=== PATIENT | male | born 1990 | race Hispanic/Latino ===

== ENCOUNTER 2016-06-18 12:53 | Emergency (ER) | payer OTHER ==
[~2016-06-18] VITALS: Ht 170.2 cm; Wt 100.0 kg
[2016-06-18 12:56] VITALS: BP 153/92; PULSE 79; RESP 18; O2SAT 98
--- NOTE | 2016-06-18 13:08 | ED.REPORT ---
HPI-Extremity Problem Lower Date of Service Jun 18, 2016 ED Provider: Ed Wade DO Pt is a 25 y/o healthy male presenting to the ED due to left ankle injury which occurred prior to arrival. The pt was showing his child how to skateboard and going down a wet ramp when he slipped and everted his left ankle. He has not been able to bear weight on the ankle since injury. Pt c/o associated pain and swelling over the left ankle. He denies numbness or weakness of the left leg or any other injury. Nursing Notes Stated Complaint: POSS BROKEN LEG Chief Complaint: Extremity Trauma Nursing Notes Reviewed: Yes Allergies: Coded Allergies: No Known Allergies (Unverified , 06/18/16) Scheduled PRN Ibuprofen (Ibuprofen) 800 Mg Tablet 800 MG PO TID PRN PRN For Pain oxyCODONE-Acetaminophen 5-325 mg (oxyCODONE-Acetaminophen 5-325 mg) 1 Each Tablet 1-2 TAB PO Q6H PRN PRN For Pain General Time Seen by MD: 13:07 Chief Complaint Ankle injury left Hx Obtained From: Patient Arrived By: Walk-in Onset Occurred: Just prior to arrival Symptom Duration: Since onset Caused by: Accidental Location: : Ankle left Quality: Painful Severity: Current: Moderate Severity: Maximum: Severe Recent Healthcare: No recent doctor visit Similar Sx Previous: No Past Medical History Past Medical History Denies Past Surgical History Nasal cyst removal Smoking History Unknown if Ever Smoker Ambulatory Status Independent Review of Systems Musculoskeletal: Reports: Extremity pain, Extremity swelling, Denies: Back pain, Neck pain Neurologic: Denies: Headache Complete sys rev & neg: except as marked. Physical Exam Initial Vital Signs Initial VS: Reviewed, Vital signs normal Head / Eyes: Atraumatic, Normocephalic, PERRL ENT: Mucous membranes moist, Conjunctiva normal, No scleral icterus Neck: Supple, Non-tender, Full range of motion Respiratory: No respiratory distress Cardiovascular: Intact distal pulses Abdomen / GI: Soft, Non-tender Skin: Warm, Dry, No cyanosis Neurologic: Alert, Oriented, Nonfocal Psychiatric: Mood/affect normal, Behavior normal, Normal thought content Lower Extremity / Pelvis / MS: Neurologic intact, Vascular intact Knee nontender Ankle / Foot: Neurologic intact, Vascular intact Left ankle: Pain and tenderness over the medial malleolus Swelling of the medial ankle Palpable deformity of the medial malleolus No ecchymosis General/Constitutional: Awake, Alert, No acute distress, Cooperative, Not toxic appearing Interpretation & Diagnostics X-Ray Interpretation Xray Interpretation: IMPRESSION: Trimalleolar fracture, prominent lateral soft tissue swelling. Dictated by: Rusty Bañuelos M.D. on 06/18/2016 at 13:25 Approved by: Rusty Bañuelos M.D. on 06/18/2016 at 13:25 Study Performed: 3 view X-Ray Ordered: Ankle left Interpretation / Wet Read by: Interpret - Radiologist Re-Eval/Medical Decision Re-Evaluation/Progress : Time of Eval: 13:59 Post-Splint Evaluation: Cap refill < 2 seconds, Distal sensation intact, Distal motor func intact, No signs compartment synd Patient Status: Condition improved, Pain improved Re-Evaluation/Progress Note: Pt rechecked. Discussed imaging results. Informed pt of plan for treatment. Pt understands and agrees with plan for treatment. F/U and RTER warnings given. All questions addressed. Consultation : Referral / Consult Name: Abdullahi Matos DO Consulted With: Orthopedic Call Returned at: 13:42 Direct Marketing Specialist: Agrees with eval, Agrees with plan Note: Discussed case and imaging. He recommends splint, ice and elevation, and he will see it in the clinic next week. He believes it will likely require surgery. Counseled Regarding: Diagnosis, Need for follow-up, When/why to return to ED Discharge & Departure Impression: Primary Impression: Left trimalleolar fracture Encounter type: initial encounter Fracture type: closed Qualified Code: S82.852A - Displaced trimalleolar fracture of left lower leg, initial encounter for closed fracture Additional Impression: Fall involving skateboard as cause of accidental injury Disposition: Home Discharge Condition All VS Reviewed: Yes Condition: Stable Patient Instructions: Ankle Fracture (ED), Splint Care (ED), Crutch Instructions (ED) Additional Instructions: You fractured 3 bones of your ankle during your accident today, this is called a trimalleolar fracture. This type of fracture often requires surgery. I discussed your case with the orthopedic physician Dr. Matos today. He recommended we splint your leg today and have you be seen in follow-up next week for further evaluation and to determine possible surgical intervention. Call his office at the number listed below on Sunday. Tell the office that Dr. Matos knows about your case and that he wanted you to be seen within 1 week at the latest. Keep your leg elevated, apply ice, and use the narcotic pain medication every 6 hours as needed for pain. Do not bear weight on the leg. Keep the splint on until you are evaluated by an orthopedist. This pain medication causes constipation and drowsiness. Take 1 scoop of Miralax with each dose of narcotic pain medication. Do not drive while under the influence of narcotic pain medication. Return to the emergency department if you develop numbness/tingling of the foot that does not resolve when you loosen the splint, you experience severe uncontrolled pain, or for other concerning symptoms. Referrals: Abdullahi Matos Attestation Portions of this note were transcribed by Drew Monk. I, Dr. Amin personally performed the history, physical exam and medical decision-making; I reviewed and confirmed the accuracy of the information in the transcribed note. Signed by Alex Mullins, 06/18/168 copies to: Abdullahi Matos Gary R DO Jun 18, 2016 13:08 DREW MONK Jun 18, 2016 13:25 reviewed and confirmed the accuracy of the information in the transcribed note. Signed by Alex Mullins, 06/18/167 copies to: Abdullahi Matos Gary R DO Jun 18, 2016 13:08 DREW MONK Jun 18, 2016 13:25
[2016-06-18] MEDS ORDERED: oxyCODONE-Acetamin 10-325 mg Tablet PO ONE (13:10)
--- NOTE | 2016-06-18 13:27 | DRSVH ---
PROCEDURE: X-RAY LEFT ANKLE, MINIMUM THREE VIEWS ([id number]) INDICATIONS: trauma TECHNIQUE: 3 views of the ankle were acquired. COMPARISON: None. FINDINGS: Bones: No dislocations. Ankle mortise is normally aligned. No suspicious bony lesions. There is a trimalleolar fracture, with the distal fibular fracture component at the metadiaphyseal junction. T he posterior malleolar fracture seen on the lateral view only. The medial malleolar fractures are pr edominantly of evulsion fragments, both laterally and inferiorly, with overlying prominent soft tissu e swelling. Soft tissues: No tibiotalar joint effusion. Achilles tendon appears normal. IMPRESSION: Trimalleolar fracture, prominent lateral soft tissue swelling. Dictated by: Rusty Bañuelos M.D. on 06/18/2016 at 13:25 Approved by: Rusty Bañuelos M.D. on 06/18/2016 at 13:25
[2016-06-18] MEDS ORDERED: OXYC1TAB24 PO (14:09)
[2016-06-18] MEDS ORDERED: IBUP800T28 PO (14:09)
[2016-06-18 14:58] VITALS: BP 132/83; PULSE 79; O2SAT 99
== END 2016-06-18 14:10 | disposition home or self-care (01) ==
LOC: SED 12:53
DX: S82.852A Displaced trimalleolar fracture of left lower leg, initial encounter for closed fracture (principal); V00.131A Fall from skateboard, initial encounter; Y92.009 Unspecified place in unspecified non-institutional (private) residence as the place of occurrence of the external cause; Y93.51 Activity, roller skating (inline) and skateboarding; Y99.8 Other external cause status

== ENCOUNTER 2016-06-26 09:04 | Day surgery (SDC) | payer OTHER ==
[2016-06-26] VITALS (10 sets, daily range): BP systolic 147–184; BP diastolic 72–108; PULSE 63–113; RESP 13–20; O2SAT 97–99
[~2016-06-26] VITALS: Ht 167.6 cm; Wt 91.2 kg
[~2016-06-26 09:04] MED LIST: CeFAZolin 2 Gm/50 mL D5W IV Premix IV ONE; IBUP800T28 PO; Lactated Ringer's 1,000 ML IV ONE; OXYC1TAB24 PO
[2016-06-26] MEDS ORDERED: HYDROmorphone 2 mg/mL Inj ONE (09:05)
[2016-06-26] MEDS ORDERED: Propofol 10 mg/mL 20 mL Inj ONE (09:05)
[2016-06-26] MEDS ORDERED: Lidocaine PF 1% 30 mL Inj ONE (09:05)
[2016-06-26] MEDS ORDERED: Ondansetron 2 mg/mL 2 mL Inj ONE (09:05)
[2016-06-26] MEDS ORDERED: EPHEDrine/NS 5 mg/mL 5 mL Syringe ONE (09:05)
[2016-06-26] MEDS ORDERED: fentaNYL-PF 50 mCg/mL 2 mL Inj ONE (09:05)
[2016-06-26] MEDS ORDERED: HYDR-4003 PO (09:34)
[2016-06-26] MEDS ORDERED: Lactated Ringer's 500 ML IV PRN (10:32)
[2016-06-26] MEDS ORDERED: Lactated Ringer's 1,000 ML IV SCH (10:32)
--- NOTE | 2016-06-26 10:32 | PCM.HPANE ---
Patient Data Date of Service: Jun 26, 2016 Surgeon Admitting Provider: Attending Provider:Abdullahi Matos DO Primary Care Physician:Bossman Other Provider:Mark Escoto Anesthesia Reason for Visit Left Ankle Fracture LEFT ANKLE FRACTURE Ht/WT & BMI Height (Feet): 5 Height (Inches): 6 Weight (Kilograms): 91.2 Body Mass Index 32.00 Allergies Coded Allergies: No Known Allergies (Unverified , 06/18/16) Past Anesthesia History Anesthesia History: Denies:: Anesthesia Reactions, Fam Anesthesia Reaction Diabetes History Hx Diabetes?: No MRSA MRSA: No Medications Hypertension Medication: No Home Meds Incl Beta Shabnam: No Active Scripts oxyCODONE-Acetaminophen 5-325 mg 1 Each Tablet1-2 Tab PO Q6H PRN For Pain #20 TABLET Ref 0 Prov:Ed Wade DO 06/18/16 Ibuprofen 800 Mg [id number] Mg PO TID PRN For Pain #30 TABLET Ref 0 Prov:Ed Wade DO 06/18/16 Reported Medications Hydrocodone-Acetaminophen 5-325 mg 1 Each Tablet1 Tablet PO Q4H PRN For Pain Ref 0 06/26/16 History History of ENT Problems?: Yes HEENT History: Positive for:: Sinus Problem (past hx removal cyst- nasal) Denies:: Cataracts Glaucoma Hearing Problem Hx of Heart Problems?: No Cardiovascular History: Denies:: AICD Congestive Heart Failure Coronary Artery Disease Edema Heart Murmur Hypertension Irregular Heartbeat Pacemaker Peripheral Vascular Rheumatic Fever Hx of Respiratory Problem?: No Respiratory History: Denies:: Asthma (as child- not any longer) COPD Emphysema Oxygen Administration Pneumonia Tuberculosis Use of C-PAP Machine Use of Inhalers / NEBS Hx Neurologic Problems?: No Neurological History: Denies:: Alzheimer's Disease CVA Dementia Dizziness Headaches Multiple Sclerosis Parkinson's Disease Seizures TIA Hx of GI Problems?: No Gastrointestinal History: Denies:: Cirrhosis Gall Bladder Disease Gastroesphageal Reflux Gastrointestinal Bleeding Heartburn Hepatitis Hiatal Hernia Liver Disease Rectal Bleeding Hx of Problems?: No Genitourinary History: Denies:: Kidney Stones Urinary Tract Infection Male Hx: Denies:: Prostate Problems Scrotal Mass Testicular Surgery Skin History: Denies:: History Skin Disorders? Pressure Ulcers Hx Musculoskeletal Problems?: Yes Musculoskeletal History: Positive for:: Musculoskeletal Trauma (left ankle fx current admission problem) Denies:: Back Injury Degenerative Joint Fibromyalgia Joint Replacement Myasthenia Gravis Osteoarthritis Rheumatoid Arthritis Systemic Lupus Hx of Psycho/Social Problems?: No Psycho Social History: Denies:: Anxiety Hx Depression Hx Surgeries?: No (no prior surgery) Hx Any Other Health Problems?: Yes Other History: Denies:: Cancer Thyroid Disease History Blood Transfusions: Positive for:: Accept Blood Products? Denies:: Blood Transfusions Hx Diabetes: No Hx Alcohol Use: YesAlcoholic Drinks Per Day: one drinke every two weeksHx Substance Use: No Smoking Status: Unknown if Ever Smoker Have You Smoked inLast 12 mo: No Stop/Bang S-Snoring: Do You Snore Loudly: No T-Tired: feel tired, fatigued: No O-Obsered: Observed not breath: No P-Blood Pressure: treated: No B- Body Mass Index > 35 kg/m2: No A- Age over 50: No N- Neck Large Circumference: No G- Gender Male: Yes PABLITO Total Score: 1 PABLITO Risk Assessment: Low Risk, <3 Yes Risk Assessment Category Category 1A: Patient has history of documented sleep apnea, and HAS NOT received any narcotic, sedative or anesthesia administration during this stay. Category 1B: Patient has history of documented sleep apnea, and HAS received any narcotic , sedative or anesthesia administration during this stay Category 2: Patient has SUSPECTED Obstructive Sleep Apnea, and HAS received any narcotic , sedative or anesthesia administration during this stay. Category 3: Patient has SUSPECTED Obstructive Sleep Apnea and HAS NOT received narcotic, sedative or anesthesia administration during this stay. Category 4: Outpatient in Procedural Areas with known sleep apnea or who screen positive for High Risk via the STOP/BANG questionnaire. Exam Exam Vital Signs Vital Signs Date Time Temp Pulse Resp B/P Pulse Ox O2 Delivery O2 Flow Rate FiO2 06/26/16 09:43 35.4 63 16 147/72 99 Room Air General Appearance: Alert, Oriented X3, Cooperative HEENT/AIRWAY: MP 2, Neck Movement, Mouth Opening Lungs: Clear to Auscultation, Normal Air Movement Heart: Regular Rate/Rhythm, Normal S1, Normal S2 Meds/Labs/Diagnostics Admission Meds Current Medications Lactated Ringer's (Lr) 1,000 ml @ 120 mls/hr Q8H20M ONCE IV Last administered on 06/26/16t 09:23; Start 06/26/16 at 05:00; Stop 06/26/16 at 13:19 Plan Impression Patient chart reviewed, patient interviewed and anesthestic plan with risks, benefits, and alternatives discussed, and informed consent obtained. NPO Status: 06/25/16 ASA Physical Status: ASA1 Normal Healthy Anesthetic Plan: GA Bene/Risks/Altern/Consents: Yes HP Complete Prior to Induction: Yes Moses Rose MD Jun 26, 2016 10:01
[2016-06-26] MEDS ORDERED: MetoCLOpramide 5 mg/mL 2 mL Inj IVPUSH PRN (10:35)
[2016-06-26] MEDS ORDERED: Phenylephrine 10,000 mCg/mL Inj IVPUSH PRN (10:35)
[2016-06-26] MEDS ORDERED: Ondansetron 2 mg/mL 2 mL Inj IVPUSH PRN ×2 (10:35→12:45)
[2016-06-26] MEDS ORDERED: Atropine 0.4 mg/mL Inj IVPUSH PRN (10:35)
[2016-06-26] MEDS ORDERED: Dexamethasone 4 mg/mL Inj IVPUSH PRN (10:35)
[2016-06-26] MEDS ORDERED: Labetalol 5 mg/mL 4 mL Inj IV PRN (10:35)
[2016-06-26] MEDS ORDERED: hydrALAZINE 20 mg/mL Inj IVPUSH PRN (10:35)
[2016-06-26] MEDS ORDERED: EPHEDrine Sulfate 50 mg/mL Inj IVPUSH PRN (10:35)
[2016-06-26] MEDS ORDERED: Ropivacaine-PF 0.5% 30 mL Inj INJ ONE (11:22)
[2016-06-26] MEDS ORDERED: Lactated Ringer's 1,000 ML IV ONE (12:00)
[2016-06-26] MEDS ORDERED: diphenhydrAMINE 25 mg Capsule PO PRN (12:45)
[2016-06-26] MEDS ORDERED: Magnesium Hydroxide 10 mL Oral Concentration PO PRN (12:45)
[2016-06-26] MEDS ORDERED: Polyethylene Glycol (PEG) 17 Gm Powder PO PRN (12:45)
--- NOTE | 2016-06-26 12:49 | PCM.ANEP1 ---
Post Anesthesia Phase 1 PACU Phase 1 Assessment Date of Service: Jun 26, 2016 Vital Signs PACU HR 114, RR 15, BP 174/91, O2 100% 10L, T 36.3 Vital Signs Date Time Temp Pulse Resp B/P Pulse Ox O2 Delivery O2 Flow Rate FiO2 06/26/16 09:43 35.4 63 16 147/72 99 Room Air Anesthetic Administered: GA Level of Alertness: Sleeping, hard to arouse SLAUGHTER's with Equal Strength: Yes Pain: No Nausea or Vomiting: No Oxygen Delivery: Simple Mask Lungs: Normal Air Movement Moses Rose MD Jun 26, 2016 12:49
[2016-06-26] MEDS: HYDROmorphone 1 mg/mL Inj IVPUSH PRN ×4 (12:50→19:28)
[2016-06-26] MEDS: fentaNYL-PF 50 mCg/mL 2 mL Inj IVPUSH PRN ×2 (12:50→13:08)
--- NOTE | 2016-06-26 13:16 | PCM.ANEP2 ---
Post Anesthesia Evaluation ASA/CMS Post Anesthesia Date of Service: Jun 26, 2016 VS in Patient's Normal Range?: Yes Resp Stable; Airway Patent?: Yes CV Function & Hydration Stable: Yes Mental Status Recovered?: Yes Pain control Satisfactory?: Yes (improving) N/V Control Satisfactory?: Yes Moess Rose MD Jun 26, 2016 13:16
[2016-06-26] MEDS: hydrOXYzine Pamoate 25 mg Capsule PO PRN ×3 (13:26→22:59)
[2016-06-26] MEDS: 0.9% Sodium Chloride 1,000 ML IV SCH (14:09)
--- NOTE | 2016-06-26 15:09 | NUR ---
Admit to [facility]SC Pt arrived on [facility] from PACU at 1355 hrs. Alert and oriented x 3. PIV patent and asymptomatic. VS within normal limits except for BP of 184/108 and HR of 98. Pt had just moved from OR cart to the bed, and he was in pain as well. Administered 0.25 mg IVP Dilaudid for pt's pain. He reported that this helped. Rechecked pt's BP and HR at 1401 hrs: BP 163/99 and HR was 81. Pt resting comfortably with left leg elevated. Spouse at bedside. Called Day Surgery to request pt's belongings be brought to his room. Will continue to monitor pt's pain level and VS.
[2016-06-26] MEDS: Sodium Chloride LOK Flush 10 mL Syringe IV SCH (16:30)
[2016-06-26] MEDS: oxyCODONE-Acetamin 5-325 mg Tablet PO PRN ×3 (17:06→22:56)
[2016-06-26] MEDS: CeFAZolin Inj 2 GM in IV Premix 1 EACH IV SCH (18:23)
--- NOTE | 2016-06-26 22:03 | OP ---
[address] [address] OPERATIVE REPORT PATIENT: SONAL GLASS : 1990 MR#: [id number] ADMIT: 06/26/2016 JOB ID: [id number] DATE OF SURGERY: 06/26/2015 PREOPERATIVE DIAGNOSIS(ES): Left trimalleolar ankle fracture dislocation. POSTOPERATIVE DIAGNOSIS(ES): Left trimalleolar ankle fracture dislocation. PROCEDURE: Left ankle open reduction and internal fixation with syndesmotic fixation. SURGEON: Abdullahi Matos DO. ANESTHESIA: General. INDICATIONS: The patient is a 25-year-old male who fell at a skateboard park injuring his left ankle. It was initially malrotated by 90 degrees and he reduced it himself in the field. Was unable to ambulate after the fall and accident. We discussed treatment options for this, and I recommended open reduction and internal fixation. We discussed the risks, benefits and possible complications of surgery. All questions were answered and he wished to proceed. PROCEDURE IN DETAIL: The patient is brought to the operating room. He was given a preoperative antibiotic and general anesthetic. The left lower extremity was sterilely prepped and draped. A tourniquet was used for hemostasis. An incision was made over the posterolateral border of the fibula. Dissection was carefully carried through the subcutaneous tissue. Electrocautery was used for hemostasis. The superficial peroneal nerve was located within the wound and protected throughout the procedure. The fracture was encountered and soft tissue was removed adjacent to the fracture was dissected with an elevator. The fracture was then debrided of clot and interposed tissue and then reduced with bone reduction forceps. A 2.7 lag screw was then placed across the fracture, which yielded excellent fixation. I then placed a none hole [employer] periarticular distal fibula locking plate along the fibula, secured this both proximally and distally with a nonlocking screw proximally and distally, and then added multiple locking screws distally. Care was taken to ensure that these were left short of the joint space, and multiple nonlocking screws proximally yielding excellent fixation of the fracture. I then performed a Cotton test and he had some medial clear space widening and gapping at the syndesmosis; and therefore, elected to place a single 3.5 syndesmotic screw across four cortices, which had excellent fixation and held the ankle stable. The syndesmotic screw was placed very near the superficial peroneal nerve. The wound was then irrigated and closed with 2-0 Vicryl to close the deep fascia and 3-0 to close the subcu. The skin was closed with 4-0 nylon. Naropin was added as an adjunct local anesthetic. Sterile dressings and plaster splints were applied. Patient tolerated the procedure well. Blood loss was 5 cc. POSTOPERATIVE PROTOCOL: Have the patient remain nonweightbearing on the left lower extremity for a period of six weeks, ice and elevate. Follow up in two weeks for suture removal and placement into a short-leg cast. He is given a prescription for Percocet for pain and will anticipate the patient will stay overnight for pain control, antibiotics, work with physical therapy, and be discharged in the morning. ROSEANNA
[2016-06-26] MEDS: Senna-Docusate 8.6-50 mg Tablet PO SCH (22:47)
--- NOTE | 2016-06-26 23:44 | NUR ---
Pain Patient stated pain 10/10 on pain scale. Pain medication and vistaril administered. Ice packs applied to left ankle area. Advised patient to call before pain get out of control. VSS. Call light within reach.
[2016-06-27 00:06] VITALS: BP 158/81; PULSE 89; RESP 16; O2SAT 94
[2016-06-27] MEDS: 0.9% Sodium Chloride 1,000 ML IV SCH ×2 (00:13→08:44)
[2016-06-27] MEDS: Sodium Chloride LOK Flush 10 mL Syringe IV SCH ×2 (00:14→07:46)
[2016-06-27] MEDS: CeFAZolin Inj 2 GM in IV Premix 1 EACH IV SCH (02:30)
[2016-06-27] MEDS: oxyCODONE-Acetamin 5-325 mg Tablet PO PRN ×3 (03:26→11:28)
[2016-06-27] MEDS: hydrOXYzine Pamoate 25 mg Capsule PO PRN ×3 (03:26→11:27)
[2016-06-27 04:30] VITALS: BP 126/73; PULSE 88; RESP 18; O2SAT 98
[2016-06-27] MEDS: Senna-Docusate 8.6-50 mg Tablet PO SCH (07:46)
--- NOTE | 2016-06-27 11:05 | PCM.PNORTH ---
Subjective Date of Service: Jun 27, 2016 Visit Information: Reason for Visit Left Ankle Fracture Surgery/Surgery Date ORIF L ANKLE 06/26/16 Post-Op Day # Date of Admission: Hospital Day # Subjective Status post day #1 left ankle trimalleolar fracture ORIF with syndesmotic screw. Patient doing well, pain is well-controlled. Patient was able to work with crutches with physical therapy and did really well. Would like to go home. Postop General: No Complaints, No Shortness of Breath, No Chest Pain Objective Exam Objective Patient is alert and oriented 3. Answering questions appropriately. Sitting up in bed and not in any acute distress today. Dressing and splint is clean dry and intact. Patient able to wiggle toes. Calf is soft and nontender, pulses intact, sensation is full. Vital Signs and I/O Vital Sign - Last Date Time Temp Pulse Resp B/P Pulse Ox O2 Delivery O2 Flow Rate FiO2 06/27/16 04:30 36.9 88 18 126/73 98 Room Air Intake and Output 06/26/16 06/26/16 06/27/16 Cumulative From/Thru 15:00 23:00 07:00 06/22/16 10:59 - 06/27/16 05:18 Intake Total 1650 ml 1721 ml 1248 ml 4619 ml Output Total 5 ml 800 ml 450 ml 1255 ml Balance 1645 ml 921 ml 798 ml 3364 ml Intake Oral 1320 ml 200 ml 1520 ml IV Total 1650 ml 401 ml 1048 ml 3099 ml Output Urine Total 800 ml 450 ml 1250 ml Estimated Blood Loss 5 ml 5 ml # Voids 2 2 # Bowel Movements 0 0 0 Assessment & Plan Impression Status post day #1 left ankle trimalleolar fracture ORIF with syndesmotic screw. Patient doing well, ready to go home. Problems: Plan Patient will remain nonweightbearing to the left lower extremity therapy for a period of 6 weeks. Use crutches for ambulation. Keep the splint clean dry and intact. Elevate, ice, and rest the leg. Patient will be given Percocet to take home to use as needed for pain. Patient will follow up in 2 weeks after open clinic for suture removal and placement in a cast. Follow-up once again at 6 weeks at [facility]. Discharge to home today. Drew Padilla PA-C Jun 27, 2016 11:05
--- NOTE | 2016-06-27 11:06 | PCM.DIORTH ---
Ortho Discharge Instruction Date of Service: Jun 27, 2016 Dates of Hospitalization Date of Hospital Admission 06/26/2016 Providers Admitting Physician: Primary Care Physician: Bossman Attending Physician: Abdullahi Matos DO Diet Discharge Diet: No restrictions Activity Discharge Activity-General: Elevate & ice extremity Left Lower Extremity: Non-weight Bearing Additional Instructions Discharge Instructions Patient will remain nonweightbearing to the left lower extremity therapy for a period of 6 weeks. Use crutches for ambulation. Keep the splint clean dry and intact. Elevate, ice, and rest the leg. Patient will be given Percocet to take home to use as needed for pain. Patient will follow up in 2 weeks after open clinic for suture removal and placement in a cast. Follow-up once again at 6 weeks at [facility] Drew Padilla PA-C Jun 27, 2016 11:06
--- NOTE | 2016-06-27 11:09 | PCM.DC.ORT ---
Discharge Summary Date of Service: Jun 27, 2016 Date of Hospital Admission: 06/26/2016 Date of Surgery: Jun 26, 2016 Date of Discharge: Jun 27, 2016 Reason for Hospitalization: Left trimalleolar ankle fracture dislocation Procedures Performed: Left ankle ORIF with syndesmotic screw Hospital Course: Patient presented to [facility] surgical suite for the procedure of left ankle ORIF by Dr. Abdullahi Matos on 06/26/2016. Patient was prepped for surgery and the procedure was performed successfully, patient was discharged to PACU under stable condition, tolerated the procedure well. Once stabilized in PACU and pain well controlled, patient was admitted to the hospital floor for observation, pain control, and progression with physical therapy. The first day the patient was able to resume a regular diet, void on their own, not having any problems with nausea or vomiting. The patient did not have any adverse falls, reactions, or events were all in the hospital. The patient began working with physical therapy on day one and was cleared to go home. Pain was well controlled and patient was discharged to home with follow-up planned with orthopedics. Diagnosis at Time of Discharge Left ankle fracture, status post left ankle ORIF. Problems: Orthopedic Follow up Plan: In Two Weeks in my clinic Discharge Instructions: Patient will remain nonweightbearing to the left lower extremity therapy for a period of 6 weeks. Use crutches for ambulation. Keep the splint clean dry and intact. Elevate, ice, and rest the leg. Patient will be given Percocet to take home to use as needed for pain. Patient will follow up in 2 weeks after open clinic for suture removal and placement in a cast. Follow-up once again at 6 weeks at [facility] Ibuprofen (Ibuprofen) 800 Mg Tablet 800 MG PO TID PRN PRN For Pain oxyCODONE-Acetaminophen 5-325 mg (oxyCODONE-Acetaminophen 5-325 mg) 1 Each Tablet 1-2 TAB PO Q6H PRN PRN For Pain Drew Padilla PA-C Jun 27, 2016 11:09
--- NOTE | 2016-06-27 11:41 | NUR ---
PAIN/DISCHARGE c/o 5/10 pain to L ankle, medicated with percocet 2 tabs and 1 tab vistaril with good effect. Patient was able to work with therapy, ambulate in hallway with crutches and ambulate into bathroom. Patient able to maintain NWB on LLE. Saline lock IV was removed from Left AC, catheter intact. Reviewed all discharge paperwork with patient, including pain medications and follow up appointments. Patient taken outside to ride in wheelchair.
--- NOTE | 2016-06-27 11:51 | NUR ---
Social Work Continued Discharge Planning: Order for discharge acknowledged. SW met with patient at bedside to discuss discharge plan. Patient is a 25 year old male admitted under [facility] for left ankle fracture. patient payer as [employer]. Patient has no PCP. Patient resides in [facility] with Eva, . Patient states having no previous HHC or SNF history. Patient pharmacy of choice as [facility]. Patient has no AD and declined completion. Patient has crutches available at bedside. SW spoke to therapist who states recommendations of home with crutches. Therapist recommending an I walk. SW contacted [facility] and DME not available. Patient states not wanting Iwalk as he will be able to manage with crutches. No other needs identified. SW to follow. PLAN: Home with , pending clinical course. Crutches at bedside. No other needs Luana DIOP
== END 2016-06-27 11:37 | disposition home or self-care (01) ==
LOC: SAS 09:04 → OSC 13:25 → SAS 06-27 11:37
PROVIDERS: ATTEND Orthopaedic Surgery
DX: S82.852A Displaced trimalleolar fracture of left lower leg, initial encounter for closed fracture (principal)
CPT/HCPCS: 27822; 27829; 97162; C1713; J0690; J1170; J2250; J2405; J2795; J7030; J7120; Q0177

== ENCOUNTER 2016-10-03 13:06 | Day surgery (SDC) | payer OTHER ==
[~2016-10-03] VITALS: Ht 167.6 cm; Wt 85.3 kg
[~2016-10-03 13:06] MED LIST changes: -CeFAZolin 2 Gm/50 mL D5W IV Premix IV ONE; +CeFAZolin Inj 2 GM in IV Premix 1 EACH IV ONE; -Lactated Ringer's 1,000 ML IV ONE; +Lactated Ringer's 1,000 ML IV SCH
[2016-10-03] MEDS ORDERED: Ondansetron 2 mg/mL 2 mL Inj ONE (13:07)
[2016-10-03] MEDS ORDERED: Propofol 10,000 mCg/mL 20 mL Inj ONE (13:07)
[2016-10-03] MEDS ORDERED: fentaNYL-PF 50 mCg/mL 2 mL Inj ONE (13:07)
[2016-10-03] MEDS ORDERED: CeFAZolin Inj 2 gm / 50mL D5W IV ONE (13:10)
[2016-10-03 13:25] VITALS: BP 118/66; PULSE 59; RESP 16; O2SAT 98
[2016-10-03] MEDS ORDERED: 0.9% Sodium Chloride 1,000 ML IV ONE (13:36)
--- NOTE | 2016-10-03 13:44 | PCM.HPANE ---
Patient Data Surgeon Admitting Provider: Attending Provider:Abdullahi Matos DO Primary Care Physician:Bossman Other Provider:Mark Escoto Anesthesia Reason for Visit Left Ankle Retained Hardware Ht/WT & BMI Height (Feet): 5 Height (Inches): 6 Weight (Kilograms): 85.3 Body Mass Index 30.00 Allergies Coded Allergies: No Known Allergies (Unverified , 10/03/16) Past Anesthesia History Anesthesia History: Denies:: Anesthesia Reactions, Fam Anesthesia Reaction Diabetes History Hx Diabetes?: No MRSA MRSA: No Medications Home Meds Incl Beta Shabnam: No Active Scripts oxyCODONE-Acetaminophen 5-325 mg 1 Each Tablet1-2 Tab PO Q6H PRN For Pain #20 TABLET Ref 0 Prov:Ed Wade DO 06/18/16 Ibuprofen 800 Mg [id number] Mg PO TID PRN For Pain #30 TABLET Ref 0 Prov:Ed Wade DO 06/18/16 History History of ENT Problems?: Yes HEENT History: Positive for:: Sinus Problem (past hx removal cyst- nasal) Denies:: Cataracts Hearing Problem Denture Type: None Teeth Condition: Within Normal Limits Hx of Heart Problems?: No Cardiovascular History: Denies:: AICD Congestive Heart Failure Edema Heart Murmur Hypertension Irregular Heartbeat Pacemaker Rheumatic Fever Hx of Respiratory Problem?: No Respiratory History: Denies:: Asthma (as child- not any longer) COPD Emphysema Oxygen Administration Pneumonia Tuberculosis Use of C-PAP Machine Hx Neurologic Problems?: No Neurological History: Denies:: Alzheimer's Disease CVA Dementia Dizziness Headaches Multiple Sclerosis Parkinson's Disease Seizures Hx of GI Problems?: No Hx of Problems?: No Genitourinary History: Denies:: Kidney Stones Urinary Tract Infection Male Hx: Denies:: Prostate Problems Scrotal Mass Testicular Surgery Skin History: Denies:: History Skin Disorders? Pressure Ulcers Hx Musculoskeletal Problems?: Yes Musculoskeletal History: Positive for:: Musculoskeletal Trauma (left ankle fx current admission problem) Denies:: Back Injury Degenerative Joint Joint Replacement Systemic Lupus Hx of Psycho/Social Problems?: No Psycho Social History: Denies:: Anxiety Hx Depression Hx Surgeries?: No (no prior surgery) Hx Any Other Health Problems?: Yes Other History: Denies:: Cancer Thyroid Disease History Blood Transfusions: Denies:: Blood Transfusions Hx Diabetes: No Hx Alcohol Use: YesHx Substance Use: No Smoking Status: Unknown if Ever Smoker Have You Smoked inLast 12 mo: No Stop/Bang S-Snoring: Do You Snore Loudly: No T-Tired: feel tired, fatigued: No O-Obsered: Observed not breath: No P-Blood Pressure: treated: No B- Body Mass Index > 35 kg/m2: No A- Age over 50: No N- Neck Large Circumference: No G- Gender Male: Yes PABLITO Total Score: 1 Risk Assessment Category Category 1A: Patient has history of documented sleep apnea, and HAS NOT received any narcotic, sedative or anesthesia administration during this stay. Category 1B: Patient has history of documented sleep apnea, and HAS received any narcotic , sedative or anesthesia administration during this stay Category 2: Patient has SUSPECTED Obstructive Sleep Apnea, and HAS received any narcotic , sedative or anesthesia administration during this stay. Category 3: Patient has SUSPECTED Obstructive Sleep Apnea and HAS NOT received narcotic, sedative or anesthesia administration during this stay. Category 4: Outpatient in Procedural Areas with known sleep apnea or who screen positive for High Risk via the STOP/BANG questionnaire. Exam Exam Vital Signs Vital Signs Date Time Temp Pulse Resp B/P Pulse Ox O2 Delivery O2 Flow Rate FiO2 10/03/16 13:25 36.5 59 16 118/66 98 Room Air General Appearance: Alert, Oriented X3, Cooperative HEENT/AIRWAY: MP 2, Neck Movement (from), Mouth Opening (wnl) Lungs: Clear to Auscultation Heart: Exam Unremarkable Meds/Labs/Diagnostics Admission Meds Current Medications Sodium Chloride (Normal Saline) 1,000 ml @ ud STK-MED ONCE IV Last administered on 10/03/16t 13:36; Start 10/03/16 at 13:36; Stop 10/03/16 at 13:37; Status DC Plan Impression Patient chart reviewed, patient interviewed and anesthestic plan with risks, benefits, and alternatives discussed, and informed consent obtained. ASA Physical Status: ASA1 Normal Healthy Anesthetic Plan: GA Bene/Risks/Altern/Consents: Yes HP Complete Prior to Induction: Yes Bran Davila MD October 03, 2016 13:44
[2016-10-03] MEDS ORDERED: Lactated Ringer's 500 ML IV PRN (15:36)
[2016-10-03] MEDS ORDERED: Lactated Ringer's 1,000 ML IV SCH (15:36)
[2016-10-03] MEDS ORDERED: Atropine 0.4 mg/mL Inj IVPUSH PRN (15:40)
[2016-10-03] MEDS ORDERED: EPHEDrine Sulfate 50 mg/mL Inj IVPUSH PRN (15:40)
[2016-10-03] MEDS ORDERED: HYDROmorphone 1 mg/mL Inj IVPUSH PRN (15:40)
[2016-10-03] MEDS ORDERED: Ondansetron 2 mg/mL 2 mL Inj IVPUSH PRN (15:40)
[2016-10-03] MEDS ORDERED: fentaNYL-PF 50 mCg/mL 2 mL Inj IVPUSH PRN (15:40)
[2016-10-03] MEDS ORDERED: Dexamethasone 4 mg/mL Inj IVPUSH PRN (15:40)
[2016-10-03] MEDS ORDERED: Lidocaine 1%/Epi 1:100,000 30 mL MDV INFILTRATE ONE (15:40)
[2016-10-03] MEDS ORDERED: Phenylephrine 10,000 mCg/mL Inj IVPUSH PRN (15:40)
[2016-10-03] MEDS ORDERED: hydrALAZINE 20 mg/mL Inj IVPUSH PRN (15:40)
[2016-10-03] MEDS ORDERED: Labetalol 5 mg/mL 4 mL Inj IV PRN (15:40)
[2016-10-03] MEDS ORDERED: Ropivacaine-PF 0.5% 30 mL Inj INFILTRATE ONE (15:50)
[2016-10-03 16:09] VITALS: BP 131/52; PULSE 78; RESP 16; O2SAT 100
[2016-10-03] MEDS ORDERED: hydrOXYzine Pamoate 25 mg Capsule PO PRN (16:15)
[2016-10-03] MEDS ORDERED: oxyCODONE-Acetamin 5-325 mg Tablet PO PRN (16:15)
[2016-10-03 16:18] VITALS: BP 129/50; PULSE 82; RESP 14; O2SAT 100
--- NOTE | 2016-10-03 16:26 | PCM.ANEP1 ---
Post Anesthesia Phase 1 PACU Phase 1 Assessment Vital Signs Vital Signs Date Time Temp Pulse Resp B/P Pulse Ox O2 Delivery O2 Flow Rate FiO2 10/03/16 16:18 82 14 129/50 100 Room Air 10/03/16 16:09 36.7 78 16 131/52 100 Room Air 10/03/16 13:25 36.5 59 16 118/66 98 Room Air Anesthetic Administered: GA Level of Alertness: Awake, talking SLAUGHTER's with Equal Strength: Yes Pain: No Nausea or Vomiting: No Cardiovascular Function and Hy: Yes Oxygen Delivery: Room Air Lungs: Normal Air Movement Complications: No Follow up Care: No Bran Davila MD October 03, 2016 16:26
[2016-10-03 16:45] VITALS: BP_SYST 130; BP_SYST 135; BP_DIAS 52; BP_DIAS 60; PULSE 80; PULSE 82; RESP 15; O2SAT 100
[2016-10-03 17:40] VITALS: BP 29/68; PULSE 82; RESP 14; O2SAT 100
--- NOTE | 2016-10-03 20:16 | OP ---
[address] [address] OPERATIVE REPORT PATIENT: SONAL GLASS : 1990 MR#: [id number] ADMIT: 10/03/2016 JOB ID: [id number] DATE OF SURGERY: 10/03/2016 PREOPERATIVE DIAGNOSIS(ES): Left ankle retained hardware. POSTOPERATIVE DIAGNOSIS(ES): Left ankle retained hardware. PROCEDURE: Removal of left ankle painful deep hardware. SURGEON: Abdullahi Matos DO. ANESTHESIA: General. INDICATIONS: The patient is a 26-year-old male who sustained a left ankle fracture with syndesmotic injury. He was treated with ORIF and had a syndesmotic screw placed and has done fairly well but has been having pain over his anterior ankle and limited dorsiflexion. He wished to have his syndesmotic screw removed. We discussed the risks, benefits, and possible complications of the procedure. All questions were answered and he wished to proceed. PROCEDURE IN DETAIL: The patient was brought to the operating room. He was given a preoperative antibiotic, general anesthetic. The left lower extremity was sterilely prepped and draped. An incision was made centered over the syndesmotic screw. I used fluoroscopy in order to locate the screw. Dissection was carefully carried down onto the screw head. Soft tissue was removed from the screw head. The screw was removed without difficulty. I then performed a stress view of the ankle and there was no medial clear space widening present. The wound was then irrigated and closed with interrupted nylon suture. Naropin was added as an adjunct local anesthetic. Sterile dressings were applied. Patient tolerated the procedure well. Blood loss was minimal. POSTOPERATIVE PROTOCOL: Have the patient weightbear to tolerance. Ice and elevate and keep his dressing on for three days. Follow up in the clinic in two weeks or sooner if needed. He was given a prescription for Percocet for pain. ROSEANNA
== END 2016-10-03 23:59 | disposition home or self-care (01) ==
LOC: SAS 13:06
PROVIDERS: ATTEND Orthopaedic Surgery
DX: Z47.2 Encounter for removal of internal fixation device (principal)
CPT/HCPCS: 20680; J0690; J2795; J7030

== ENCOUNTER 2016-10-26 17:50 | Emergency (ER) | payer OTHER ==
[~2016-10-26] VITALS: Ht 167.6 cm; Wt 83.6 kg
[~2016-10-26 17:50] MED LIST changes: -CeFAZolin Inj 2 GM in IV Premix 1 EACH IV ONE; -Lactated Ringer's 1,000 ML IV SCH
[2016-10-26 18:15] VITALS: BP 123/83; PULSE 62; RESP 16; O2SAT 100
[2016-10-26 19:11] LABS: BASOPHILS % (AUTO) 0.1 % (0-3); EOSINOPHILS % (AUTO) 1.7 % (0-5); MONOCYTES % (AUTO) 12.1 % (4-12); Mean Corpuscular Hemoglobin 28.1 pg (27.0-35.0); Mean Corpuscular Volume 82.7 fL (81-100); NEUTROPHILS % (AUTO) 65.5 % (40-74); Platelet Count 277 bil/L (150-400)
[2016-10-26] MEDS ORDERED: 0.9% Sodium Chloride 1,000 ML IV ONE (19:20)
[2016-10-26] MEDS ORDERED: HYDROmorphone 0.5 mg/0.5 mL iSecure Syringe IVPUSH PRN (19:20)
[2016-10-26] MEDS ORDERED: Ondansetron 2 mg/mL 2 mL Inj IVPUSH ONE (19:20)
--- NOTE | 2016-10-26 19:47 | ED.REPORT ---
HPI-NVD Date of Service October 26, 2016 ED Provider: Marc Lopez MD Patient is a 26 year old who presents to the ED complaining of diarrhea onset 3 days ago. Associated symptoms include abdominal pain and vomiting after eating. He denies hematochezia or fever. Patient has tried taking Pepto Bismol with no relief of symptoms. The patient reports that his and kids recently had a virus with similar symptoms. He had surgery on his ankle a month ago and was put on antibiotics after. Nursing Notes Stated Complaint: SHARP ABD PAIN,DIARRHEA,VOMITING Chief Complaint: Male Abdominal Pain Nursing Notes Reviewed: Yes (BONESUPPORT not reconciled) Allergies: Coded Allergies: No Known Allergies (Unverified , 10/03/16) Scheduled PRN Ibuprofen (Ibuprofen) 800 Mg Tablet 800 MG PO TID PRN PRN For Pain oxyCODONE-Acetaminophen 5-325 mg (oxyCODONE-Acetaminophen 5-325 mg) 1 Each Tablet 1-2 TAB PO Q6H PRN PRN For Pain General Time Seen by MD: 19:18 Chief Complaint Diarrhea Hx Obtained From: Patient Arrived By: Walk-in Onset Occurred: 3 days ago Symptom Duration: Since onset Vomiting: Vomiting food Diarrhea: Diarrhea 7-10 episodes Location: : Diffuse Quality: Sharp Severity: Current: Moderate Associated with: Reports: Abdominal pain, Denies: Blood in stool, Fever Recent Healthcare: No recent hospitalization, Recent doctor visit Similar Sx Previous: No Past Medical History Past Medical History Denies Past Surgical History Nasal cyst removal ankle surgery Smoking History Unknown if Ever Smoker Social History Other Social History: Good social support, , Lives with children Ambulatory Status Independent Review of Systems Constitutional: Denies: Fever GI: Reports: Abdominal pain, Diarrhea, Nausea, Vomiting, Denies: Hematochezia Complete sys rev & neg: except as marked. Respiratory: Denies: Non-productive cough, Shortness of breath Physical Exam Initial Vital Signs Vital Signs (First) Date Time Temp Pulse Resp B/P Pulse Ox O2 Delivery O2 Flow Rate FiO2 10/26/16 18:15 37.7 62 16 123/83 100 Room Air Initial VS: Reviewed, Vital signs normal General/Constitutional: Awake, Alert looks mildly dehydrated and fatigued Abdomen: Atraumatic, Soft, Non-tender Respiratory / Chest: Atraumatic, Breath sounds NL, Breath sounds = bilat, No respiratory distress Cardiovascular: Heart rate NL, Regular rhythm, Heart sounds NL Skin: Atraumatic, Color NL, No rash, Warm, Dry Neurologic: Oriented X3, Speech NL, No motor deficits, No sensory deficits Head / Eyes: Atraumatic, Normocephalic, PERRL, EOMI Psychiatric: Affect NL, Mood NL Interpretation & Diagnostics Lab Results Interpretation Result Diagram: 10/26/16190710/26/161907 Test 10/26/16 19:08 10/26/16 19:18 White Blood Count 7.8th/mm3 (3.8-10.1) Red Blood Count 5.44mil/mm3 (4.40-5.80) Hemoglobin 15.3g/dL (13.8-17.2) Hematocrit 45.0% (41.0-50.0) Mean Corpuscular Volume 82.7fL (81-100) Mean Corpuscular Hemoglobin 28.1pg (27.0-35.0) Mean Corpuscular Hemoglobin Concent 34.0% (32.0-37.0) Red Cell Distribution Width 13.3% (12.3-15.4) Platelet Count 277bil/L (150-400) Neutrophils (%) (Auto) 65.5% (40-74) Lymphocytes (%) (Auto) 20.5% (14-46) Monocytes (%) (Auto) 12.1% (4-12) Eosinophils (%) (Auto) 1.7% (0-5) Basophils (%) (Auto) 0.1% (0-3) Sodium Level 141mEq/L (134-144) Potassium Level 3.7mEq/L (3.5-5.2) Chloride Level 100mEq/L (97-108) Carbon Dioxide Level 27mmol/L (18-29) Blood Urea Nitrogen 10mg/dL (6-20) Creatinine 0.76mg/dL (0.76-1.27) Estimat Glomerular Filtration Rate 134mL/min (>59) Glucose Level 100mg/dL (60-99) Calcium Level 9.9mg/dL (8.5-10.1) Magnesium Level 2.0mg/dL (1.6-2.6) Total Bilirubin 0.3mg/dL (0.0-1.2) Aspartate Amino Transf (AST/SGOT) 18U/L (0-50) Alanine Aminotransferase (ALT/SGPT) 16U/L (0-44) Alkaline Phosphatase 91U/L (25-150) Total Protein 8.4g/dL (6.4-8.4) Albumin 4.6g/dL (3.4-5.0) Lipase 16U/L (13-60) Hold Frazier Top Tube Received (Received) Lab Results Interpretation: CBC normal CMP normal Stool PCR for C. difficile pending Re-Eval/Medical Decision Med Decision/Clinical Course This is a pleasant 26-year-old male who presents with 3 days of diarrhea and some abdominal cramping. Multiple family members original recover from a diarrheal illness, the patient's been feeling worse. He does have a single risk factor for C. difficile having had surgery and antibiotics of his foot about a month ago. The patient clinically appears well. His bladder is normal. His abdomen is soft and nontender. He was hydrated, and feels much better with the medication. My suspicion for C. difficile is on the low end, but a stool study for PCR for C. difficile isolate alone has been sent and is likely the result tomorrow. The patient is being discharged on loperamide, in April 13 pack of hydrocodone for when necessary symptom control. Routine precautions reviewed. Patient is to call tomorrow for results of the C. difficile, and if it returns positive the hospital should try and reach him. He is aware that if it is abnormal, additional medication or treatment may be indicated. Routine/return precautions Source of Hx: Old records Re-Evaluation/Progress : Time of Eval: 20:52 Re-Evaluation/Progress Note: Discussed plan for discharge. The patient understands and agrees to the plan for discharge. All questions were addressed. Differential Diagnosis: Positive: Dehydration, Negative: Boerhaave syndrome, Crohn's disease, Diabetes mellitus, Diabetic ketoacidosis, Drug overdose, Drug-med reaction, Food poisoning, Hepatitis, Meniere's disease, Migraine headache, Peptic ulcer disease, Counseled Regarding: Diagnosis, Lab results, Need for follow-up, When/why to return to ED Discharge & Departure Disposition: Home Discharge Condition All VS Reviewed: Yes Condition: Stable Referrals: [facility] Scribe Attestation Portions of this note were transcribed by Jocy Serrano. IDr. Lopez personally performed the history, physical exam and medical decision-making; I reviewed and confirmed the accuracy of the information in the transcribed note. Signed by: Alex Blake, 10/26/16 and 1953 copies to: [facility] Marc Lopez MD October 26, 2016 19:47 Ayana Serrano October 26, 2016 19:54
[2016-10-26 20:45] VITALS: BP 115/63; PULSE 106; O2SAT 100
[2016-10-26] MEDS ORDERED: _HYDROcodone/APAP 5-325 mg Tablet PO PRN (20:55)
[2016-10-26 21:29] VITALS: BP 117/67; PULSE 53; O2SAT 100
== END 2016-10-26 21:35 | disposition home or self-care (01) ==
LOC: SED 17:50
DX: R19.7 Diarrhea, unspecified (principal); R11.10 Vomiting, unspecified
CPT/HCPCS: 36415; 80053; 83690; 83735; 85025; 87493; 96361; 96374; 96375; 99284; J1170; J2405; J7030